=== PATIENT | female | born 1980 | race African-American/Black ===

== ENCOUNTER 2017-06-10 22:19 | Emergency (ER) | payer OTHER ==
[~2017-06-10] VITALS: Ht 172.7 cm; Wt 85.3 kg
[~2017-06-10 22:19] MED LIST: ALBUTEROL INHAL17 GM IH; ALPRAZOLAM ER1 MG PO; CLEOCIN HCL150 MG PO; CLEOCIN HCL300 MG PO; CLONAZEPAM 1 MG1 M1; FLAGYL500 MG PO; FLEXERIL PO; HYDROCODON-ACE1 EAC7 PO; HYDROCODONE-AP1 EAC6 PO; IBUPROFEN 800800 M1 PO; IBUPROFEN 800800 MG PO; IRON159 MG; NOHOMEMEDICATIONS; NORCO 5-325 TA1 EACH PO; PAXIL10 MG PO; PROVENTIL HFA6.7 G1; PROZAC 20 MG20 MG; ROBAXIN 750 MG750 M1 PO; TESSALON200 MG PO; ULTRAM 50MG TAB50 MG PO; VALTREX1000 MG; WOMEN'S DAILY1 EAC2 PO
[2017-06-10] MEDS ORDERED: AMOXICILLIN 50500 MG PO (23:06)
[2017-06-10 23:17] VITALS: BP 147/107
== END 2017-06-10 23:17 | disposition home or self-care (01) ==
LOC: M.ERS 22:19
DX: J01.80 Other acute sinusitis (principal); B96.89 Other specified bacterial agents as the cause of diseases classified elsewhere; J45.909 Unspecified asthma, uncomplicated; Z88.1 Allergy status to other antibiotic agents

== ENCOUNTER 2017-10-11 23:53 | Emergency (ER) | payer OTHER ==
[~2017-10-11] VITALS: Ht 172.7 cm; Wt 81.7 kg
[~2017-10-11 23:53] MED LIST changes: +AMOXICILLIN 50500 MG PO
[2017-10-12] MEDS ORDERED: KEFLEX250 M1 PO (00:19)
[2017-10-12] MEDS ORDERED: IBUPROFEN 800800 MG PO (00:19)
[2017-10-12 00:52] VITALS: BP 136/97
== END 2017-10-12 00:52 | disposition home or self-care (01) ==
LOC: M.ERS 23:53
DX: S61.213A Laceration without foreign body of left middle finger without damage to nail, initial encounter (principal); J45.909 Unspecified asthma, uncomplicated; Z88.2 Allergy status to sulfonamides; W45.8XXA Other foreign body or object entering through skin, initial encounter; Y93.89 Activity, other specified; Y92.89 Other specified places as the place of occurrence of the external cause; Y99.8 Other external cause status

== ENCOUNTER 2017-11-16 17:38 | Emergency (ER) | payer OTHER ==
[~2017-11-16] VITALS: Ht 172.7 cm; Wt 86.2 kg
[~2017-11-16 17:38] MED LIST changes: +KEFLEX250 M1 PO
[2017-11-16 17:55] LABS: ABSOLUTE BASOPHILS 0.1 thou/uL (0.0-0.2); ABSOLUTE EOSINOPHILS 0.1 thou/uL (0.0-0.7); ABSOLUTE LYMPHOCYTES 2.4 thou/uL (0.8-5.3); ABSOLUTE MONOCYTES 0.3 thou/uL (0.0-1.2); ABSOLUTE NEUTROPHILS 3.1 thou/uL (1.6-8.1); BASOPHILS 0.9 %; EOSINOPHILS 0.9 %; HEMATOCRIT 38.6 % (37.0-47.0); HEMOGLOBIN 12.6 gm/dL (12.0-15.0); LYMPHOCYTES 40.2 %; MCH 26.9 pg (26.0-34.0); MCHC 32.6 g/dL (28.0-37.0); MCV 82.4 fL (80.0-100.0); MONOCYTES 5.9 %; MPV 8.4 fl. (7.2-11.1); NUCLEATED RBCS 0 /100WBC; PLATELET COUNT* 185 thou/uL (150-400); POLYS 52.1 %; RBC 4.68 mil/uL (4.20-5.00); RDW-CV 12.8 % (10.5-14.5)
[2017-11-16 18:04] LABS: ANION GAP 4 mmol/L (7-16); BUN 9 mg/dL (7-18); CALCIUM 8.2 mg/dL (8.5-10.1); CHLORIDE 105 mmol/L (98-107); CO2 27 mmol/L (21-32); CREATININE 0.8 mg/dL (0.6-1.3); GLUCOSE 93 mg/dL (70-99); POTASSIUM 3.5 mmol/L (3.5-5.1); SODIUM 136 mmol/L (136-145)
[2017-11-16 18:14] LABS: ALBUMIN 3.6 g/dL (3.4-5.0); ALKALINE PHOSPHATASE 53 U/L (46-116); LIPASE 298 U/L (73-393); MAGNESIUM 1.7 mg/dL (1.8-2.4); NT-PRO BRAIN NAT PEPTIDE 16 pg/mL (<300); SGOT 22 U/L (15-37); SGPT 26 U/L (30-65); TOTAL BILIRUBIN 0.2 mg/dL (<0.1-1.0); TOTAL PROTEIN 7.2 g/dL (6.4-8.2); TROPONIN-I LEVEL <0.06 ng/mL (<0.06)
[2017-11-16] MEDS ORDERED: CARAFATE 1 GM TA1 GM PO (20:39)
[2017-11-16] MEDS ORDERED: OMEPRAZOLE 20 M20 M1 PO (20:39)
[2017-11-16 21:02] VITALS: BP 115/85
--- NOTE | 2017-11-17 13:59 | EKG ---
[place] [address] ELECTROCARDIOGRAM REPORT Name: VELIA WHITTINGTONN Room: [facility]#: [id number] Admission: 11/16/17 Attend Phys: Discharge: 11/16/17 Date of : 82 Report #: [id number] THIS REPORT FOR: //name// [facility] ED Test Date: 2017-11-16 Test Time: 17:42:48 Pat Name: VELIA WHITTINGTON Department: Room: Gender: F [employer]: ELAN : 1980 Requested By: Steve Vaughn Order Number: [id number] MD: Yobani Souza Measurements Intervals [place] Rate: 74 P: 70 [place]: 158 QRS: 61 QRSD: 94 T: 40 QT: 370 QTc: 411 Interpretive Statements Sinus rhythm Baseline wander in lead(s) I,aVR No previous ECG available for comparison Electronically Signed On 11-17-2017 13:59:44 CDT by Yobani Souza [email or web address] <ELECTRONICALLY SIGNED> By: South Souza MD, [facility] 11/17/17 1359 [id number] South Souza MD, FAC /EPI
== END 2017-11-16 21:05 | disposition home or self-care (01) ==
LOC: M.ERS 17:38
PROVIDERS: Emergency Medicine Emergency Medical Services
DX: R07.89 Other chest pain (principal); F41.9 Anxiety disorder, unspecified; J45.909 Unspecified asthma, uncomplicated; Z98.890 Other specified postprocedural states; Z88.2 Allergy status to sulfonamides

== ENCOUNTER 2018-03-23 21:39 | Emergency (ER) | payer OTHER ==
[~2018-03-23] VITALS: Ht 172.7 cm; Wt 81.7 kg
[~2018-03-23 21:39] MED LIST changes: +CARAFATE 1 GM TA1 GM PO; +OMEPRAZOLE 20 M20 M1 PO
[2018-03-23 22:37] LABS: ABSOLUTE BASOPHILS 0.1 thou/uL (0.0-0.2); ABSOLUTE EOSINOPHILS 0.1 thou/uL (0.0-0.7); ABSOLUTE LYMPHOCYTES 2.5 thou/uL (0.8-5.3); ABSOLUTE MONOCYTES 0.5 thou/uL (0.0-1.2); ABSOLUTE NEUTROPHILS 5.2 thou/uL (1.6-8.1); BASOPHILS 0.8 %; EOSINOPHILS 0.9 %; HEMATOCRIT 39.1 % (37.0-47.0); HEMOGLOBIN 12.8 gm/dL (12.0-15.0); LYMPHOCYTES 29.9 %; MCHC 32.8 g/dL (28.0-37.0); MCV 82.4 fL (80.0-100.0); MONOCYTES 5.6 %; MPV 8.9 fl. (7.2-11.1); NUCLEATED RBCS 0 /100WBC; PLATELET COUNT* 198 thou/uL (150-400); POLYS 62.8 %; RBC 4.75 mil/uL (4.20-5.00); WBC 8.2 thou/uL (4.0-11.0)
[2018-03-23 22:46] LABS: PROTIME 10.4 Seconds (9.20-11.50)
[2018-03-23 22:47] LABS: CALCIUM 8.6 mg/dL (8.5-10.1); CREATININE 0.9 mg/dL (0.6-1.3); POTASSIUM 3.4 mmol/L (3.5-5.1)
[2018-03-23 22:51] LABS: ALBUMIN 3.6 g/dL (3.4-5.0); TOTAL BILIRUBIN 0.4 mg/dL (<0.1-1.0); TOTAL PROTEIN 7.1 g/dL (6.4-8.2)
[2018-03-24] MEDS ORDERED: BUTALB-APAP-CA1 EACH PO (00:55)
[2018-03-24] MEDS ORDERED: FLEXERIL PO (00:55)
[2018-03-24 01:15] VITALS: BP 100/53
--- NOTE | 2018-03-24 11:09 | EKG ---
[place] [address] ELECTROCARDIOGRAM REPORT Name: VELIA WHITTINGTONN Room: [facility]#: [id number] Admission: 03/23/18 Attend Phys: Discharge: 03/24/18 Date of : 82 Report #: [id number] THIS REPORT FOR: //name// [facility] ED Test Date: 2018-03-23 Test Time: 22:28:55 Pat Name: VELIA WHITTINGTON Department: Room: Gender: F Technology Lead: MELISSA : 1980 Requested By: Marva Treviño Order Number: [id number] MD: Jamal Vázquez Measurements Intervals [place] Rate: 81 P: 65 [place]: 172 QRS: 47 QRSD: 81 T: 36 QT: 363 QTc: 422 Interpretive Statements Sinus rhythm Compared to ECG 11/16/2017 17:42:48 No significant changes Electronically Signed On 03-24-2018 11:08:54 [employer] INSPECTOR by Jamal Vázquez [email or web address] <ELECTRONICALLY SIGNED> By: Jamal Vázquez MD, [facility] 03/24/18 1108 [id number] Jamal Vázquez MD, FACC /EPI
== END 2018-03-24 01:15 | disposition home or self-care (01) ==
LOC: M.ERS 21:39
PROVIDERS: Emergency Medicine
DX: R51 Headache (principal); J45.909 Unspecified asthma, uncomplicated; F41.9 Anxiety disorder, unspecified; Z98.890 Other specified postprocedural states; Z88.2 Allergy status to sulfonamides